=== PATIENT | female | born 1995 | race Caucasian/White ===

== ENCOUNTER 2018-10-16 13:25 | Outpatient (CLI) | payer MEDICAID ==
[2018-10-16 15:01] LABS: ADD UMIC NO; UR ASCORBIC ACID NEGATIVE (NEGATIVE); UR BILIRUBIN (Dip) NEGATIVE (NEGATIVE); UR BLOOD (Dip) NEGATIVE (NEGATIVE); UR CLARITY SLIGHTLY CLOUDY (CLEAR); UR COLOR YELLOW (YELLOW); UR GLUCOSE (Dip) NEGATIVE (NEGATIVE); UR KETONES (Dip) NEGATIVE (NEGATIVE); UR LEUKOCYTE ESTERASE (Dip) NEGATIVE Leu/ul (NEGATIVE); UR NITRITE (Dip) NEGATIVE (NEGATIVE); UR RBC 3 /HPF (0-5); UR SPECIFIC GRAVITY (Dip) 1.013 (1.003-1.030); UR TOTAL PROTEIN (Dip) NEGATIVE (NEGATIVE); UR UROBILINOGEN (Dip) NEGATIVE (NEGATIVE); UR WBC 1 /HPF (0-5)
== END 2018-10-16 15:47 | disposition home or self-care (01) ==
LOC: OBT 13:25 → L-D 13:25 → OBT 15:47
DX: O62.9 Abnormality of forces of labor, unspecified (principal); Z3A.39 39 weeks gestation of pregnancy
CPT/HCPCS: 76818; 81001; 81003

== ENCOUNTER 2018-10-24 11:36 | Inpatient (IN) | payer MEDICAID ==
[2018-10-24] MEDS ORDERED: MISOPROSTOL 200 MCG TAB PR (13:00)
[2018-10-24] MEDS ORDERED: OXYTOCIN 30 UNITS/LR 500 ML IV ×2 (13:00→13:30)
[2018-10-24] MEDS ORDERED: CARBOPROST 250 MCG INJ IM (13:00)
[2018-10-24] MEDS ORDERED: METHYLERGONOVINE 0.2 MG INJ IM (13:00)
[2018-10-24] MEDS: LACTATED RINGER'S 1,000 ML IV ×3 (13:06→23:50)
[2018-10-24 13:28] LABS: ADD MAN DIFF? NO
[2018-10-24 13:30] LABS: BASOPHILS % 0.2 % (0.0-2.0); EOSINOPHILS # 0.2 10^3/ul (0.0-0.5); EOSINOPHILS % 2.5 % (0.0-7.0); HEMATOCRIT 37.8 % (37.0-47.0); HEMOGLOBIN 12.6 g/dl (12.0-16.0); LYMPHOCYTES # 1.7 10^3/ul (0.8-2.9); LYMPHOCYTES % 18.4 % (15.0-51.0); MEAN CORPUSCULAR HGB CONC 33.3 g/dl (32.0-37.0); MEAN CORPUSCULAR VOLUME 93.1 fl (82.0-101.0); MEAN PLATELET VOLUME 11.8 fl (7.4-10.4); MONOCYTE # 0.7 10^3/ul (0.3-0.9); MONOCYTES % 7.8 % (0.0-11.0); NEUTROPHIL # 6.5 10^3/ul (1.6-7.5); NEUTROPHILS % 70.2 % (39.0-77.0); PLATELET COUNT 187 10^3/UL (140-415); RED BLOOD COUNT 4.06 10^6/ul (4.20-5.40); RED CELL DISTRIBUTION WIDTH 14.4 % (11.5-14.5)
[2018-10-24 13:30] LABS: WHITE BLOOD COUNT 9.3 10^3/ul (4.8-10.8)
[2018-10-24 13:33] LABS: INR 0.84; PROTIME 11.6 Sec (11.9-14.9); PT RATIO 0.9
[2018-10-24 13:34] LABS: PARTIAL THROMBOPLASTIN TIME 25.2 Sec (23.0-35.0)
[2018-10-24 15:03] LABS: RAPID PLASMA REAGIN NONREACTIVE (NR)
[2018-10-24] MEDS: OXYTOCIN 30 UNITS/LR 500 ML IV (15:17)
[2018-10-24] MEDS ORDERED: NALOXONE (0.4 MG/ML) INJ IV (17:30)
[2018-10-24] MEDS ORDERED: KETOROLAC 30 MG INJ IV (17:30)
[2018-10-24] MEDS ORDERED: ONDANSETRON 4 MG INJ IV (17:30)
[2018-10-24] MEDS ORDERED: HYDROmorphONE 0.5 MG/0.5 ML SYG IV ×2 (17:30)
[2018-10-24] MEDS ORDERED: DIPHENHYDRAMINE 50 MG INJ IV (17:30)
[2018-10-25] MEDS: MINERAL OIL LIGHT 10 ML VIAL TOP (01:30)
[2018-10-25] MEDS: FENTAnyl 2MCG/ML-ROPIV 0.2% 100 ML BAG EPI ×3 (04:19→19:20)
[2018-10-25] MEDS: LACTATED RINGER'S 1,000 ML IV ×2 (07:54→12:37)
[2018-10-25] MEDS: DEXTROSE 5%-LR 1,000 ML IV (16:27)
[2018-10-25] MEDS: ACETAMINOPHEN 325 MG TAB PO (16:49)
[2018-10-25] MEDS: AMPICILLIN 2 GM/NS (PMX) 100 ML IV (16:49)
[2018-10-25] MEDS: AMPICILLIN 1 GM/NS (PMX) 50 ML IV (21:02)
[2018-10-26] MEDS: FENTAnyl 2MCG/ML-ROPIV 0.2% 100 ML BAG EPI (00:48)
[2018-10-26] MEDS: AMPICILLIN 1 GM/NS (PMX) 50 ML IV (01:00)
[2018-10-26] MEDS: OXYTOCIN 30 UNITS/LR 500 ML IV ×3 (02:04→06:31)
[2018-10-26] MEDS: LIDOCAINE 1% (MPF) 30 ML INJ INJ (02:05)
[2018-10-26] MEDS ORDERED: OXYTOCIN 30 UNITS/LR 500 ML IV (02:30)
[2018-10-26] MEDS ORDERED: ONDANSETRON 4 MG INJ IV (02:30)
[2018-10-26] MEDS ORDERED: METHYLERGONOVINE 0.2 MG INJ IM (02:30)
[2018-10-26] MEDS ORDERED: CARBOPROST 250 MCG INJ IM (02:30)
[2018-10-26] MEDS ORDERED: MISOPROSTOL 200 MCG TAB PR (02:30)
[2018-10-26] MEDS ORDERED: NACL 0.9% 3 ML SYG IV (02:30)
[2018-10-26] MEDS: WITCH HAZEL/GLYCERIN PAD PR (04:38)
[2018-10-26] MEDS: BENZOCAINE 20% 56 ML SPRAY TOP (04:39)
[2018-10-26] MEDS: LANOLIN HPA 1 PKT TOP (04:39)
[2018-10-26] MEDS: IBUPROFEN 600 MG TAB PO ×3 (06:13→18:11)
[2018-10-26] MEDS: SENNA/DOCUSATE NA (8.6MG/50MG) TAB PO ×2 (08:54→21:52)
[2018-10-26] MEDS: OXYCODONE/ASPIRIN (4.88/325) TAB PO (08:55)
[2018-10-27] MEDS: IBUPROFEN 600 MG TAB PO ×3 (00:32→11:04)
[2018-10-27] MEDS: OXYCODONE/ASPIRIN (4.88/325) TAB PO (03:57)
[2018-10-27 08:50] LABS: HEMATOCRIT 29.4 % (37.0-47.0); HEMOGLOBIN 9.6 g/dl (12.0-16.0)
[2018-10-27] MEDS: SENNA/DOCUSATE NA (8.6MG/50MG) TAB PO (10:55)
== END 2018-10-27 18:35 | disposition home or self-care (01) | DRG 807 ==
LOC: OBT 11:36 → PP1 10-26 03:49 → L-D 11:37 → OBT 11:51 → L-D 11:51
PROVIDERS: Obstetrics & Gynecology
PROC: 10E0XZZ Delivery of Products of Conception, External Approach (ICD-10-PCS; principal; 2018-10-26)
PROC: 0W8NXZZ Division of Female Perineum, External Approach (ICD-10-PCS; 2018-10-26)
DX: O48.0 Post-term pregnancy (principal); Z37.0 Single live birth; Z3A.40 40 weeks gestation of pregnancy
CPT/HCPCS: 76816; 85014; 85018; 85025; 85610; 85730; 86592; 86850; 86900; 86901; 99464